=== PATIENT | male | born 1965 | race Caucasian/White ===

== ENCOUNTER 2021-07-23 13:49 | Inpatient (IN) | payer OTHER ==
[2021-07-23] MEDS ORDERED: diazePAM 5 MG TABLET PO PRN (16:27)
[2021-07-23] MEDS ORDERED: BISMUTH SUBSALICYLATE 524 MG/30 ML PO PRN (16:27)
[2021-07-23] MEDS ORDERED: MAGNESIUM HYDROX 2400MG/30ML ORAL SUSPENSION 30 ML CUP PO PRN (16:27)
[2021-07-23] MEDS ORDERED: ONDANSETRON *ODT* 4 MG TABLET SL PRN (16:27)
[2021-07-23] MEDS ORDERED: IBUPROFEN 400 MG TABLET (FP) PO PRN (16:27)
[2021-07-23] MEDS ORDERED: ACETAMINOPHEN 325 MG TABLET (FP) PO PRN ×2 (16:27)
[2021-07-23] MEDS ORDERED: MAG HYDROX/AL HYDROX/SIMETH 30 ML UNIT-DOSE CUP PO PRN (16:27)
[2021-07-23] MEDS ORDERED: MENTHOL/PHENOL 1 EACH UD MM PRN (16:27)
[2021-07-23] MEDS ORDERED: MAGNESIUM CITRATE 300 ML BOTTLE PO PRN (16:27)
[2021-07-23] MEDS ORDERED: METHOCARBAMOL 500 MG TABLET PO PRN (16:27)
[2021-07-23] MEDS ORDERED: ALBUTEROL SO4 HFA INHALER IH PRN (16:28)
[2021-07-23 18:24] VITALS: BMI 24.6
[2021-07-23] MEDS: hydrOXYzine PAMOATE 25 MG CAPSULE (FP) PO SCH ×2 (19:31→23:30)
[2021-07-23] MEDS: diazePAM 5 MG TABLET PO SCH ×2 (19:42→22:33)
[2021-07-23] MEDS: NICOTINE 10 MG CARTRIDGE (INHALER) IH PRN (21:18)
[2021-07-23] MEDS: THIAMINE HCL 100 MG TABLET (FP) PO SCH (22:33)
[2021-07-23] MEDS: MELATONIN 5 MG TABLETS PO SCH (22:33)
[2021-07-24] MEDS: TOPIRAMATE 25 MG TABLET PO SCH ×3 (00:06→22:13)
[2021-07-24] MEDS: hydrOXYzine PAMOATE 25 MG CAPSULE (FP) PO SCH ×5 (05:31→22:14)
[2021-07-24] MEDS: diazePAM 5 MG TABLET PO SCH ×4 (05:31→22:13)
[2021-07-24] MEDS: PRENATAL VITAMINS W/ FOLIC ACID TABLET (FP) PO SCH (10:23)
[2021-07-24 10:43] LABS: HEMATOCRIT 38.4 % (35.4-49); MCH 31.4 pg (25.7-33.7); MCHC 33.9 g/dl (32.0-35.9); MEAN CELL VOLUME 92.6 fl (80-96); MEAN PLT VOLUME 9.5 fl (7.5-11.1); PLATELET COUNT 192 10^3/uL (134-434); RBC 4.14 M/mm3 (4.00-5.60); RDW 13.3 % (11.9-15.9); WHITE BLOOD COUNT 4.4 K/mm3 (4.0-10.0)
[2021-07-24 10:50] LABS: BILIRUBIN,TOTAL 0.5 mg/dL (0.2-1)
[2021-07-24 10:51] LABS: ALBUMIN 3.5 g/dl (3.4-5.0); TOT PROT 6.1 g/dl (6.4-8.2)
[2021-07-24 10:53] LABS: BLOOD UREA NITROGEN 17.2 mg/dL (7-18); CALCIUM 8.6 mg/dL (8.5-10.1); CREATININE 1.2 mg/dL (0.55-1.3)
[2021-07-24] MEDS ORDERED: FLU VACC QS2021-22(6MOS UP)/PF 60 MCG/0.5 ML SYRINGE IM ONE (12:30)
[2021-07-24] MEDS: NICOTINE 10 MG CARTRIDGE (INHALER) IH PRN (17:55)
[2021-07-24] MEDS: THIAMINE HCL 100 MG TABLET (FP) PO SCH (22:13)
[2021-07-24] MEDS: MELATONIN 5 MG TABLETS PO SCH (22:14)
[2021-07-25] MEDS ORDERED: diazePAM 5 MG TABLET PO SCH (06:00)
[2021-07-25] MEDS: hydrOXYzine PAMOATE 25 MG CAPSULE (FP) PO SCH ×2 (06:36→11:00)
[2021-07-25 09:37] VITALS: BP 106/57; PULSE 81; TEMP 97.3
[2021-07-25] MEDS: PRENATAL VITAMINS W/ FOLIC ACID TABLET (FP) PO SCH (11:00)
[2021-07-26] MEDS ORDERED: diazePAM 5 MG TABLET PO SCH (06:00)
[2021-07-27] MEDS ORDERED: diazePAM 5 MG TABLET PO ONE (06:00)
== END 2021-07-25 11:48 | disposition left against medical advice (07) | DRG 894 ==
LOC: YASAS 13:49 → Y6N 16:35
PROVIDERS: ADMIT Allergy & Immunology; ATTEND Allergy & Immunology
PROC: HZ2ZZZZ Detoxification Services for Substance Abuse Treatment (ICD-10-PCS; principal; 2021-07-23)
DX: F10.230 Alcohol dependence with withdrawal, uncomplicated (principal); F14.20 Cocaine dependence, uncomplicated; F17.210 Nicotine dependence, cigarettes, uncomplicated; Z87.09 Personal history of other diseases of the respiratory system
CPT/HCPCS: 36415; 80053; 85027; 86780; 90686; C9803; U0003; U0005